=== PATIENT | male | born 1955 | race Asian ===

== ENCOUNTER 2023-11-12 12:18 | Inpatient (IN) | payer MEDICAID ==
[~2023-11-12] VITALS: Ht 170.2 cm; Wt 74.8 kg
[2023-11-12] VITALS (7 sets, daily range): BP systolic 106–168; BP diastolic 62–100; PULSE 102–110; RESP 18–27; TEMP 97.6–98.3; O2SAT 96–97
[2023-11-12 14:00] LABS: BASOPHILS % (AUTO) 0.5 % (0.0-2.0); EOSINOPHILS % (AUTO) 0.3 % (0.0-4.0); HEMATOCRIT 44.8 % (36-52); HEMOGLOBIN 15.1 g/dL (12.0-18.0); LYMPHOCYTES # (AUTO) 0.5 K/uL (2.0-11.5); LYMPHOCYTES % (AUTO) 7.6 % (20.5-51.1); MEAN CORPUSCULAR HEMOGLOBIN 29 pg (27-31); MEAN CORPUSCULAR HGB CONC 34 g/dL (33-37); MEAN CORPUSCULAR VOLUME 85.7 fL (80-94); MONOCYTES % (AUTO) 0.5 % (1.7-9.3); NEUTROPHILS # (AUTO) 5.6 K/uL (1.8-7.7); NEUTROPHILS % (AUTO) 91.1 % (42.2-75.2); PLATELET COUNT (AUTO) 152 K/uL (140-450); RED BLOOD CELL COUNT(AUTO) 5.23 MIL/uL (4.20-6.10); RED CELL DISTRIBUTION WIDTH 14.1 % (11.6-13.7); WHITE BLOOD COUNT (AUTO) 6.2 K/uL (4.8-10.8)
[2023-11-12] MEDS: NACL 0.9% 2,000 ML IV ONE ×2 (14:02→17:00)
[2023-11-12 14:14] LABS: ANION GAP 15.3 (8-16); CALCIUM 8.5 mg/dL (8.5-10.1); CREATININE 1.5 mg/dL (0.6-1.3); POTASSIUM 3.3 mmol/L (3.5-5.1)
[2023-11-12 14:20] LABS: ALANINE AMINOTRANSFERASE 28 U/L (12-78); ALBUMIN 3.3 g/dL (3.4-5.0); ALKALINE PHOSPHATASE 127 U/L (50-136); ASPARTATE AMINOTRANSFERASE 47 U/L (15-37); BILIRUBIN,DIRECT 0.4 mg/dL (0.0-0.3); TOTAL PROTEIN, SERUM 6.4 g/dL (6.4-8.2)
[2023-11-12 14:22] LABS: BILIRUBIN,URINE 1+ (NEGATIVE); BLOOD, URINE 1+ (NEGATIVE); COLOR,URINE YELLOW (YELLOW); LEUKOCYTE ESTERASE ,URINE TRACE (NEGATIVE); NITRITE, URINE POSITIVE (NEGATIVE); PROTEIN,URINE 3+ (NEGATIVE); UGLUCOSE 3+ (NEGATIVE); UROBILINOGEN,URINE 0.2 EU/dL (0.2 - 1)
[2023-11-12 14:23] LABS: APPEARANCE,URINE SLIGHTLY CLOUDY (CLEAR)
[2023-11-12 14:24] LABS: ICTOTEST POSITIVE (NEGATIVE)
[2023-11-12 14:25] LABS: BACTERIA,URINE 2+ /HPF (None Seen); MUCUS,URINE None Seen /LPF (None Seen); RBC,URINE 0-5 /HPF (0-5); SQUAMOUS EPITHELIAL CELL,UR 4-10 (MOD) /LPF (0-3 (FEW))
[2023-11-12 14:28] LABS: LACTIC ACID 5.9 mmol/L (0.4-2.0)
[2023-11-12 14:29] LABS: INR 1.34 (0.8-1.2); PARTIAL THROMBOPLASTIN TIME 29.8 secs (22-35.6); PROTHROMBIN TIME 13.9 secs (10.8-13.4)
[2023-11-12] MEDS ORDERED: VANCOMYCIN 1,000 MG VIAL ONE (16:13)
[2023-11-12] MEDS ORDERED: CEFEPIME 1,000 MG VIAL ONE (16:13)
[2023-11-12] MEDS: CEFEPIME 1,000 MG in DEXTROSE 5% 50 ML IV ONE (16:19)
[2023-11-12] MEDS: VANCOMYCIN 1,000 MG in DEXTROSE 5% 250 ML IV ONE (16:22)
[2023-11-12] MEDS ORDERED: ACETAMINOPHEN EXTRA STRENGTH 500 MG TAB ONE (16:54)
[2023-11-12 17:01] LABS: FLU A ANTIGEN negative (NEGATIVE); FLU B ANTIGEN NEGATIVE (NEGATIVE)
[2023-11-12] MEDS: ACETAMINOPHEN EXTRA STRENGTH 500 MG TAB PO ONE (17:01)
[2023-11-12] MEDS ORDERED: DOCUSATE SODIUM 100 MG GELCAP PO PRN (18:00)
[2023-11-12] MEDS ORDERED: HYDROcodone/APAP 7.5/325 MG 1 TAB PO PRN (18:00)
[2023-11-12] MEDS ORDERED: ZOLPIDEM 5 MG TAB PO PRN (18:00)
[2023-11-12] MEDS ORDERED: ONDANSETRON 4 MG/2 ML VIAL IM/IVP PRN (18:00)
[2023-11-12] MEDS ORDERED: guaiFENesin DM 200/20 MG-10 ML 10 ML UDC PO PRN (18:00)
[2023-11-12 18:57] LABS: ALBUMIN 2.7 g/dL (3.4-5.0); CALCIUM 8.1 mg/dL (8.5-10.1); CARBON DIOXIDE 22.1 mmol/L (21-32); CREATININE 1.4 mg/dL (0.6-1.3); POTASSIUM 3.1 mmol/L (3.5-5.1); TOTAL BILIRUBIN 0.9 mg/dL (0.0-1.0); TOTAL PROTEIN, SERUM 5.5 g/dL (6.4-8.2)
[2023-11-12] MEDS: NACL 0.9% 1,000 ML IV SCH (18:58)
[2023-11-12] MEDS: POTASSIUM CHLORIDE 10 MEQ TABER PO PRN (20:18)
[2023-11-12] MEDS ORDERED: PIPERACILLIN/TAZOBACTAM 3.375 GM VIAL IV ONE (21:18)
[2023-11-12] MEDS: PIPERACILLIN/TAZOBACTAM 3.375 GM in DEXTROSE 5% 50 ML IV SCH (21:19)
[2023-11-12] MEDS ORDERED: HALO1TAB99 PO (21:51)
[2023-11-12] MEDS ORDERED: METF-1139 PO (21:51)
[2023-11-12] MEDS ORDERED: ATOR10TA51 PO (21:51)
[2023-11-12] MEDS ORDERED: EMPA10TA PO (21:51)
[2023-11-12] MEDS ORDERED: GLIP10TA12 PO (21:51)
[2023-11-12] MEDS ORDERED: FINA-54 PO (21:51)
[2023-11-12] MEDS ORDERED: LISI40TA8 PO (21:51)
[2023-11-12] MEDS ORDERED: TAMS0.4C96 PO (21:51)
[2023-11-12] MEDS ORDERED: PARO10OR PO (21:51)
[2023-11-13] VITALS (8 sets, daily range): BP systolic 94–120; BP diastolic 52–70; PULSE 95–121; RESP 18–23; TEMP 98–100.4; O2SAT 95–100
[2023-11-13] MEDS: PIPERACILLIN/TAZOBACTAM 3.375 GM VIAL IV ONE (04:25)
[2023-11-13 07:35] LABS: ALBUMIN 2.7 g/dL (3.4-5.0); ANION GAP 15.9 (8-16); CALCIUM 7.9 mg/dL (8.5-10.1); CARBON DIOXIDE 21.7 mmol/L (21-32); CREATININE 1.5 mg/dL (0.6-1.3); POTASSIUM 3.6 mmol/L (3.5-5.1); TOTAL PROTEIN, SERUM 5.8 g/dL (6.4-8.2)
[2023-11-13] MEDS ORDERED: NON-FORMULARY ITEM (Atorvastatin Calcium 1 TAB) PO SCH (09:00)
[2023-11-13] MEDS: ATORVASTATIN 20 MG TAB PO SCH (09:12)
[2023-11-13] MEDS: FINASTERIDE 5 MG TAB PO SCH (09:12)
[2023-11-13] MEDS: PANTOPRAZOLE 40 MG TABEC PO SCH (09:12)
[2023-11-13] MEDS: TAMSULOSIN 0.4 MG CAP PO SCH (09:12)
[2023-11-13 09:44] LABS: LACTIC ACID 2.8 mmol/L (0.4-2.0)
[2023-11-13] MEDS ORDERED: DEXTROSE 50% 50 ML SYR IVP PRN (11:40)
[2023-11-13] MEDS: NACL 0.9% 500 ML IV SCH (11:56)
[2023-11-13] MEDS: ACETAMINOPHEN 325 MG TAB PO PRN (11:57)
[2023-11-13 14:47] LABS: LACTIC ACID 1.8 mmol/L (0.4-2.0)
[2023-11-13] MEDS: BLOOD GLUCOSE MONITORING 1 DEV DEV FS SCH (16:29)
[2023-11-14] VITALS: BP 124/69; PULSE 95; RESP 19; TEMP 98.2; O2SAT 98
[2023-11-14 04:00] VITALS: BP 133/79; PULSE 90; PULSE 96; PULSE 97; RESP 20; TEMP 98.3; O2SAT 96
[2023-11-14 08:00] VITALS: BP 156/77; PULSE 102; PULSE 104; PULSE 95; PULSE 98; RESP 16; RESP 18; TEMP 99.4; O2SAT 95; O2SAT 96
[2023-11-14 08:02] LABS: ALBUMIN 2.6 g/dL (3.4-5.0); ANION GAP 11.3 (8-16); CALCIUM 8.4 mg/dL (8.5-10.1); CARBON DIOXIDE 24.8 mmol/L (21-32); CREATININE 1.1 mg/dL (0.6-1.3); POTASSIUM 3.1 mmol/L (3.5-5.1); TOTAL BILIRUBIN 0.9 mg/dL (0.0-1.0); TOTAL PROTEIN, SERUM 5.8 g/dL (6.4-8.2)
[2023-11-14 09:05] LABS: HEMATOCRIT 35.7 % (36-52); HEMOGLOBIN 11.8 g/dL (12.0-18.0); MEAN CORPUSCULAR HEMOGLOBIN 29 pg (27-31); MEAN CORPUSCULAR HGB CONC 33 g/dL (33-37); MEAN CORPUSCULAR VOLUME 86.7 fL (80-94); PLATELET COUNT (AUTO) 84 K/uL (140-450); RED BLOOD CELL COUNT(AUTO) 4.12 MIL/uL (4.20-6.10); RED CELL DISTRIBUTION WIDTH 14.2 % (11.6-13.7)
[2023-11-14] MEDS: POTASSIUM CHLORIDE 10 MEQ TABER PO ONE (10:32)
[2023-11-14 11:07] LABS: WHITE BLOOD COUNT (AUTO) 22.1 K/uL (4.8-10.8)
[2023-11-14 11:09] LABS: BASOPHILS % (MANUAL) 0 % (0-2); BLASTS, MANUAL % 0 % (0-0); EOSINOPHILS % (MANUAL) 0 % (0-4); LYMPHOCYTES % (MANUAL) 10 % (20-46); METAMYELOCYTES % 0 % (0-0); MONOCYTES % (MANUAL) 5 % (5-12); MYELOCYTES % 0 % (0-0); PROMYELOCYTES % 0 % (0-0)
[2023-11-14 11:10] LABS: ANISOCYTOSIS 1+; PLATELET ESTIMATE DECREASED
[2023-11-14 12:00] VITALS: BP 142/68; PULSE 74; PULSE 82; PULSE 99; RESP 16; TEMP 98.2; O2SAT 95
[2023-11-14] MEDS: INSULIN LISPRO SLIDING SCALE 100 UNITS/ML VIAL SUBQ PRN (15:51)
[2023-11-14 15:57] LABS: BASOPHILS # (AUTO) 0.1 K/uL (0.00-0.22); BASOPHILS % (AUTO) 0.4 % (0.0-2.0); EOSINOPHILS # (AUTO) 0.2 K/uL (0-0.4); EOSINOPHILS % (AUTO) 0.7 % (0.0-4.0); HEMATOCRIT 37.8 % (36-52); HEMOGLOBIN 12.4 g/dL (12.0-18.0); LYMPHOCYTES # (AUTO) 1.2 K/uL (2.0-11.5); LYMPHOCYTES % (AUTO) 4.9 % (20.5-51.1); MEAN CORPUSCULAR HEMOGLOBIN 28 pg (27-31); MEAN CORPUSCULAR HGB CONC 33 g/dL (33-37); MEAN CORPUSCULAR VOLUME 85.4 fL (80-94); MONOCYTES # (AUTO) 0.8 K/uL (0.8-1.0); MONOCYTES % (AUTO) 3.4 % (1.7-9.3); NEUTROPHILS # (AUTO) 21.9 K/uL (1.8-7.7); NEUTROPHILS % (AUTO) 90.6 % (42.2-75.2); PLATELET COUNT (AUTO) 88 K/uL (140-450); RED BLOOD CELL COUNT(AUTO) 4.43 MIL/uL (4.20-6.10); RED CELL DISTRIBUTION WIDTH 14.5 % (11.6-13.7); WHITE BLOOD COUNT (AUTO) 24.1 K/uL (4.8-10.8)
[2023-11-14 16:00] VITALS: BP 148/68; PULSE 84; RESP 20; TEMP 97.1; O2SAT 98
[2023-11-14 20:00] VITALS: BP 165/87; PULSE 117; RESP 19; TEMP 98.9; O2SAT 93
[2023-11-14] MEDS: MEROPENEM 1,000 MG VIAL IV ONE (21:41)
[2023-11-14] MEDS: MEROPENEM 1,000 MG in NACL 0.9% 50 ML IV SCH (21:42)
[2023-11-15] MEDS: hydrALAZINE 20 MG/ML VIAL IVP PRN (00:20)
[2023-11-15 04:00] VITALS: BP 138/69; PULSE 97; RESP 19; TEMP 98.8; O2SAT 98
[2023-11-15] MEDS: MEROPENEM 1,000 MG VIAL IV ONE ×2 (04:44→05:26)
[2023-11-15 07:15] LABS: BASOPHILS # (AUTO) 0.1 K/uL (0.00-0.22); BASOPHILS % (AUTO) 0.3 % (0.0-2.0); EOSINOPHILS # (AUTO) 0.1 K/uL (0-0.4); EOSINOPHILS % (AUTO) 0.5 % (0.0-4.0); HEMOGLOBIN 12.3 g/dL (12.0-18.0); LYMPHOCYTES # (AUTO) 1.3 K/uL (2.0-11.5); LYMPHOCYTES % (AUTO) 6.3 % (20.5-51.1); MEAN CORPUSCULAR HEMOGLOBIN 29 pg (27-31); MEAN CORPUSCULAR HGB CONC 34 g/dL (33-37); MEAN CORPUSCULAR VOLUME 84.6 fL (80-94); MONOCYTES # (AUTO) 0.9 K/uL (0.8-1.0); MONOCYTES % (AUTO) 4.3 % (1.7-9.3); NEUTROPHILS # (AUTO) 18.8 K/uL (1.8-7.7); NEUTROPHILS % (AUTO) 88.6 % (42.2-75.2); PLATELET COUNT (AUTO) 95 K/uL (140-450); RED BLOOD CELL COUNT(AUTO) 4.26 MIL/uL (4.20-6.10); RED CELL DISTRIBUTION WIDTH 14.3 % (11.6-13.7); WHITE BLOOD COUNT (AUTO) 21.2 K/uL (4.8-10.8)
[2023-11-15 08:00] VITALS: BP 145/86; PULSE 88; RESP 18; TEMP 98.4; O2SAT 92
[2023-11-15 08:49] LABS: ANION GAP 11.8 (8-16); CALCIUM 8.4 mg/dL (8.5-10.1); CARBON DIOXIDE 24.3 mmol/L (21-32); CREATININE 0.9 mg/dL (0.6-1.3); POTASSIUM 3.1 mmol/L (3.5-5.1)
[2023-11-15 08:56] LABS: ALBUMIN 2.4 g/dL (3.4-5.0); TOTAL BILIRUBIN 1.1 mg/dL (0.0-1.0); TOTAL PROTEIN, SERUM 5.9 g/dL (6.4-8.2)
[2023-11-15 16:00] VITALS: BP 176/94; PULSE 94; PULSE 95; RESP 18; TEMP 98.7; O2SAT 94
[2023-11-15 17:50] LABS: APPEARANCE,URINE CLEAR (CLEAR); BILIRUBIN,URINE NEGATIVE (NEGATIVE); BLOOD, URINE NEGATIVE (NEGATIVE); COLOR,URINE YELLOW (YELLOW); LEUKOCYTE ESTERASE ,URINE NEGATIVE (NEGATIVE); NITRITE, URINE NEGATIVE (NEGATIVE); PROTEIN,URINE 1+ (NEGATIVE); UGLUCOSE 2+ (NEGATIVE); UROBILINOGEN,URINE 0.2 EU/dL (0.2 - 1)
[2023-11-15 17:55] LABS: URINE TOTAL PROTEIN 55.3 mg/dL (0-12)
[2023-11-15 17:56] LABS: URINE TPRO CREAT RATIO 0.6 (0-0.20)
[2023-11-15 20:00] VITALS: BP 168/91; PULSE 114; PULSE 116; RESP 16; TEMP 100.1; O2SAT 91
[2023-11-15] MEDS: CLONIDINE HYDROCHLORIDE 0.1 MG TAB PO ONE (20:49)
[2023-11-16 06:58] LABS: BASOPHILS # (AUTO) 0.1 K/uL (0.00-0.22); BASOPHILS % (AUTO) 0.8 % (0.0-2.0); EOSINOPHILS # (AUTO) 0.2 K/uL (0-0.4); EOSINOPHILS % (AUTO) 2.1 % (0.0-4.0); HEMATOCRIT 37.4 % (36-52); HEMOGLOBIN 12.8 g/dL (12.0-18.0); LYMPHOCYTES # (AUTO) 1.5 K/uL (2.0-11.5); LYMPHOCYTES % (AUTO) 14.7 % (20.5-51.1); MEAN CORPUSCULAR HEMOGLOBIN 29 pg (27-31); MEAN CORPUSCULAR HGB CONC 34 g/dL (33-37); MEAN CORPUSCULAR VOLUME 84.9 fL (80-94); MONOCYTES # (AUTO) 0.8 K/uL (0.8-1.0); MONOCYTES % (AUTO) 8.1 % (1.7-9.3); NEUTROPHILS # (AUTO) 7.6 K/uL (1.8-7.7); NEUTROPHILS % (AUTO) 74.3 % (42.2-75.2); PLATELET COUNT (AUTO) 111 K/uL (140-450); RED BLOOD CELL COUNT(AUTO) 4.41 MIL/uL (4.20-6.10); RED CELL DISTRIBUTION WIDTH 14.3 % (11.6-13.7); WHITE BLOOD COUNT (AUTO) 10.3 K/uL (4.8-10.8)
[2023-11-16 07:34] LABS: ALBUMIN 2.3 g/dL (3.4-5.0); ANION GAP 12.6 (8-16); CALCIUM 8.1 mg/dL (8.5-10.1); CARBON DIOXIDE 23.8 mmol/L (21-32); CREATININE 0.8 mg/dL (0.6-1.3); POTASSIUM 3.4 mmol/L (3.5-5.1); TOTAL PROTEIN, SERUM 5.9 g/dL (6.4-8.2)
[2023-11-16 08:00] VITALS: BP 160/82; PULSE 93; RESP 19; TEMP 99.8; O2SAT 99
[2023-11-16] MEDS ORDERED: LEVO750T75 PO (10:25)
[2023-11-16 11:02] VITALS: BP 160/82; PULSE 93; RESP 19; TEMP 98.8
== END 2023-11-16 11:25 | disposition home or self-care (01) | DRG 720 ==
LOC: MED 12:18 → MTU 18:03
PROVIDERS: ADMIT Student in an Organized Health Care Education/Training Program; ATTEND Student in an Organized Health Care Education/Training Program
DX: A41.9 Sepsis, unspecified organism (principal); N17.0 Acute kidney failure with tubular necrosis; E43 Unspecified severe protein-calorie malnutrition; E87.6 Hypokalemia; Z20.822 Contact with and (suspected) exposure to COVID-19; I10 Essential (primary) hypertension; H91.3 Deaf nonspeaking, not elsewhere classified; N40.1 Benign prostatic hyperplasia with lower urinary tract symptoms; N39.0 Urinary tract infection, site not specified; E78.5 Hyperlipidemia, unspecified; E11.9 Type 2 diabetes mellitus without complications; Z79.899 Other long term (current) drug therapy; Z68.24 Body mass index [BMI] 24.0-24.9, adult
CPT/HCPCS: 36415; 71045; 76770; 80048; 80053; 80076; 81001; 81003; 82570; 82948; 83605; 83880; 84156; 84484; 85025; 85610; 85730; 87040; 87070; 87081; 87086; 87186; 93005; 96365; 96368; 97110; 97116; 97163-GP; 97530; 99291; J0360; J0692; J1815; J2185; J2543; J3370; J7060; Q0092